=== PATIENT | female | born 1980 | race Caucasian/White ===

== ENCOUNTER 2019-07-02 14:15 | Inpatient (IN) | payer OTHER ==
[~2019-07-02] VITALS: Ht 152.4 cm; Wt 62.1 kg
[2019-07-02] MEDS ORDERED: SYNTHROID50 MCG PO (15:33)
== END 2019-07-07 12:31 | disposition home or self-care (01) | DRG 743 ==
LOC: O/R 14:15 → OB/GYN 07-04 05:45 → SURH 07-04 07:00 → OB/GYN 07-04 10:55 → SURH 07-04 14:15 → OB/GYN 07-07 12:31
PROVIDERS: ADMIT Specialist
PROC: 0UT97ZZ Resection of Uterus, Via Natural or Artificial Opening (ICD-10-PCS; principal; 2019-07-04 07:00)
DX: D25.1 Intramural leiomyoma of uterus (principal); N80.0 Endometriosis of uterus; N72 Inflammatory disease of cervix uteri